=== PATIENT | female | born 1960 | race Caucasian/White ===

== ENCOUNTER → 2016-10-12 | Outpatient (CLI) | payer OTHER | LOC: RAD 08:35 | PROVIDERS: ATTEND Otolaryngology | DX: H71.01 Cholesteatoma of attic, right ear (principal) | CPT/HCPCS: 70480 ==

== ENCOUNTER 2016-12-13 06:27 | Day surgery (SDC) | payer OTHER ==
[2016-12-13] MEDS ORDERED: LIDOCAINE 1%/EPINEPHRINE INJ 20 ML VIAL ONE (07:13)
[2016-12-13] MEDS ORDERED: EPINEPHRINE INJ 30 MG/30 ML VIAL ONE (07:13)
[2016-12-13] MEDS ORDERED: CIPROFLOXACIN HCL/DEXAMETH OTIC DROP 7.5 ML ONE (07:13)
[2016-12-13] MEDS ORDERED: MIDAZOLAM 2 MG/2 ML INJ ONE (07:22)
[2016-12-13] MEDS ORDERED: DEXMEDETOMIDINE INJ 80 MCG/20 ML VIAL IV ONE (07:23)
[2016-12-13] MEDS ORDERED: DEXAMETHASONE SOD PHOS INJ 10 MG/1 ML VIAL ONE (07:23)
[2016-12-13] MEDS ORDERED: FENTANYL CITRATE INJ/PF 250 MCG/5 ML AMPULE ONE (07:23)
[2016-12-13] MEDS ORDERED: PROPOFOL INJ 200 MG/20 ML VIAL IV ONE (07:23)
[2016-12-13] MEDS ORDERED: ONDANSETRON HCL INJ/PF 4 MG/2 ML SDV ONE (07:24)
[2016-12-13] MEDS ORDERED: ACETAMINOPHEN 100 ML IV ONE (07:25)
[2016-12-13] MEDS ORDERED: DIPHENHYDRAMINE HCL 50 MG/ML VIAL ONE (07:28)
[2016-12-13] MEDS ORDERED: EPHEDRINE SULFATE INJ 50 MG/1 ML AMPULE ONE (07:58)
[2016-12-13] MEDS ORDERED: SCOPOLAMINE HYDROBROMIDE 1.5 MG PATCH.TD72 TD ONE (08:30)
[2016-12-13] MEDS ORDERED: GLYCOPYRROLATE INJ 0.4 MG/2 ML VIAL ONE (10:46)
[2016-12-13] MEDS ORDERED: ROCURONIUM BROMIDE INJ 50 MG/5 ML VIAL IV ONE (11:07)
[2016-12-13] MEDS ORDERED: MORPHINE SULFATE 10 MG/ML INJ ONE (11:07)
[2016-12-13] MEDS: FENTANYL CITRATE INJ/PF 100 MCG/2 ML AMPUL ONE ×4 (13:46→13:57)
--- NOTE | 2016-12-13 18:43 | OPERATIVE REPORT E ---
Operative Report NAME: AMARILYS STANLEY : 1960 AGE: 56Y DATE OF SURGERY: 12/13/2016 ROOM: PREOPERATIVE DIAGNOSIS: Attic cholesteatoma right ear POSTOPERATIVE DIAGNOSIS: As preop together with missing incus. OPERATION: Right modified radical tympanomastoidectomy with excision of cholesteatoma with Facial Nerve Monitoring (1 hour) SURGEON: DAMIÁN CROSS M.D. DOLLY DRIVER: None. ANESTHESIA: General, Dr. Cynthia Whitaker and Evgeny Ragland CRNA PREOPERATIVE NOTE: This is a 56-year-old lady, originally from [facility], who underwent a right simple mastoidectomy there in 1977. According to her older sister, she had ear infections when she was a young child, but apparently did not receive myringotomies and tubes. Past history for allergies, and she has been on shots for years. She has had hearing loss on the right side, basically to the point that she only uses her left ear. The patient was seen by the emergency department at the [facility] [place] on 10/01/2016, initially because of bloody right-sided otorrhea. She was followed up there on 10/03/2016, and there was concern about a possible perforated tympanic membrane, and she was put on Ofloxacin drops. She was having "large chunks" of material coming out of her ear, and she was then seen at [facility] on 10/08/2016, at which point it was evident that she had an attic cholesteatoma. A CT scan was performed at [facility] some days later, which was confirmatory of a mass apparently arising in the attic. An audiometric assessment was also obtained which showed a conductive hearing loss on the right hand side. 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 The patient now comes for definitive tympanomastoid surgery. The patient was seen and identified in the preop holding area. A brief history and physical was completed, as the documentation from [facility] had not been faxed over. The right ear was marked for laterality. The CT scan was reviewed on the computer. The patient was then taken back to the operating room, placed in supine position, general anesthesia was induced and an oral endotracheal tube was placed by Gabrielle. The patient's right ear area was shaved. The Neurosign monitor electrodes were placed. A suitable skin incision was marked out with a skin marking pen. The patient was then appropriately positioned, prepped and draped for right otologic surgery. A short time out was then taken and all issues relating to the patient's identify, her positioning on the table, the procedures to be performed, and the risks attendant thereto, were all discussed and there were no matters arising. Initially, the area of the postauricular skin crease was infiltrated with 1% Lidocaine, 1:100,000 epinephrine using a 25 gauge needle, and the same material was utilized to infiltrate the right external canal. The Zeiss operating microscope was brought into the field and the right external canal was examined. The attic cholesteatoma was visualized. The pars tensa appeared unremarkable. Radial incisions were then made with a sickle knife at 6 o'clock and 12 o'clock and joined with a canal incision that left a generous posterosuperior corner. That corner was confirmed using Bellucci scissors. The tympanomeatal flap was then taken down to the annulus but not through it. A granuloma was noted in the open attic perforation and this was biopsied and sent for histological analysis. Next, the skin crease incision was made posterior to the prior scar. This was created with a #15-bladed knife and then deepened with needlepoint electrocautery. Dissection was done with curved Iris scissors and then a Weitlaner was inserted. The dissection was taken forward through the scar tissue until the defect in the mastoid cortical bone was identified. Dissection was carried anterior to that, until the bony external canal could be palpated. The Weitlaner was moved to accommodate this. Next, a needlepoint cautery incision was made following the inferior border of the right temporalis muscle from about the level of the external canal posteriorly to the posterior wound edge. A T-incision was then dropped as a perpendicular along the lateral aspect of the right mastoid process. Periosteal elevation was then done across the cortical defect in the right mastoid process and onto the posterior bony ear canal. The posterior canal wall flap was then elevated. This was then retracted back through the external canal using 2-0 Chromic catgut suture. The Rahman self retaining retractor was then inserted. The mastoid process appeared to have a number of scar bands across it. This seemed to compartmentalize this cavity but there was no pus or fluid and no cholesteatoma sac could be seen immediately. The dissection of the tympanomeatal flap was now done until the annulus could be elevated and the middle ear entered. The annulus was elevated superiorly. The chorda tympani nerve was identified and the attic retraction/cholesteatoma sac appeared to abut the superior aspect of the nerve. That nerve was carefully traced to the neck of the malleus, teasing it off of the inferior lip of the cholesteatoma sac as the dissection progressed. All of this tissue was extremely friable and concern was experienced regarding the potential for tearing the sac. It was felt reasonable to see if the sac could be identified inside the mastoid in order to determine its extent. Accordingly, drilling was begun with the [employer] drill system using a large cutting bur. That was utilized to drill off the overhangs from the previous dissection. The posterior bony canal wall was fairly thick, posteriorly, and therefore drilling down the posterior aspect of this could be done with ease. This was taken down until the lateral semicircular canal could be visualized. This structure was easily found. Careful palpation was then done with a whirlybird, but no incus could be palpated. A return was therefore made to the external canal and the dissection was continued posteriorly and then superiorly pushing the cholesteatoma sac anteriorly using a house knife. This further suggested that there was no incus, as the sac appeared to collapse, with the posterior wall being pushed forward onto its anterior wall. With further dissection, the posterior limits of the sac could not be established with any certainty. Drilling was again commenced inside the mastoid and, as the dissection proceeded forward and superiorly, it became evident that the sac was indeed very large, extending medial to the head of the malleus, probably in the direction of the eustachian tube orifice. At this point, all hopeof continuing with a canal wall intact procedure was abandoned, and it was decided to take the posterior canal wall down. This was then done expeditiously with large cutting bur and copious irrigation. The bridge was broken with a stapes curet. The ridge was then lowered, initially with cutting bur. Some use of the curet was made. The ridge was then further lowered with large lamberto bur and copious irrigation. There was a prominent tract of thickened sick-looking mucoid material in the suprapyramidal tract of cells. These were cleaned out using a Shandra knife. It was then possible to take the posterior facial ridge down to a suitable low height. There was much aeration of the mastoid process, inferiorly. This was drilled out with large cutting bur and then the tip was taken off with bone rongeurs. The sigmoid sinus was already in view and this was further dissected, both inferiorly down into the tip, and then superiorly, as it became evident that the mastoid roof was quite low. Careful dissection of this revealed that there was really quite a lot of bone here that had to be removed before the dura of the middle cranial fossa was approached. There did not appear to be an obvious defect in the tegmen mastoidii. The aerated cells, medially, were curetted first of all, and then use was made, first of light drilling with a small cutting bur, 2 mm, and then a lamberto bur to eburnate all these cells. Drilling then had to be done anteriorly and superiorly to gain full visualization of the sac's anterior limit. It then became possible to see all of the dimensions of the sac and indeed the end of the sac was close to the opening of the eustachian tube. The sac itself was carefully peeled across the horizontal portion of the facial nerve and was teased out from underneath the mastoid head. It was then possible to use the malleus head nipper to remove the head of the malleus (which was possibly contaminated, so it was placed in sterile water, rather than saline, for the remainder of the case). The sac was then teased back towards the middle ear and then it was excised and sent, piecemeal, for histological analysis. Next, an incision was made along the handle of the malleus and the periosteum was elevated forwards in order to allow for the temporalis fascia graft to tucked underneath the tympanic membrane but lateral to the handle of the malleus. That dissection was taken superiorly over the short process up to the truncated neck. As no incus was found, it was then possible to dissect down towards the oval window and a mobile stapes superstructure was discovered. This was not instrumented. The rest of the middle ear appeared unremarkable. The floor of the external canal was lowered with a lamberto bur to be at the right height with the ridge. Further lowering of the ridge was done, keeping a careful watch for the Neurosign alarm. Next, a large piece of "fools' fascia" was harvested, cleansed, and crushed in the fascia press. No bleeding ensued from that. After that, a large piece of temporalis fascia was carefully harvested and this likewise was cleansed and then crushed in the fascia press. Next, a meatoplasty was created by resecting a small portion of conchal cartilage and extending the radial incisions such that the posterior wall could be brought yet further back. Bleeding was surprisingly minimal. The conchal cartilage was cleansed and then placed in the recess superior to the lateral semicircular canal. The middle ear was now filled with chips of Gelfoam soaked in Ciprodex otic suspension. The temporalis fascia graft was inserted with a tongue passing lateral to the handle of the malleus but medial to the tympanic membrane remnant. Some was then laid up onto the inferior bony external canal. It was then laid across the stapes superstructure up onto the facial ridge and the region of the lateral semicircular canal and then down into the mastoid bowl. Now the fools' fascia was placed to line the roof of the mastoid bowl and cover the conchal cartilage. This extended all the way down towards the mastoid tip. Large amounts of Gelfoam sponge were then placed lateral to all of this. The meatoplasty had been made large enough to admit the index finger of the surgeon's left hand. The posterior canal flap was now trimmed of excess length and sutured back, using a 2-0 Chromic catgut suture placed through the conchal cartilage, attaching it to the mastoid periosteum, posteriorly. Two such sutures were placed. The wound was then closed with interrupted 2-0 Chromic catgut sutures utilizing buried knots. Skin was closed with jaki. A finger from a surgical glove was then removed and a piece of Gelfoam was placed in this. This glove finger was then greased with bacitracin ointment and placed in the external auditory meatus. The wound was then cleansed, dried, coated with bacitracin ointment, and then bacitracin-soaked cotton was teased out and placed in the postauricular skin crease and some was placed in the conchal bowl. This was followed by a standard Julia dressing and the procedure was terminated. The Neurosign electrodes were removed. The anesthesia was reversed. The patient was extubated, light, and transferred to PACU in good condition having tolerated procedure well. Because the procedure extended longer than had originally been anticipated, a Morris catheter was placed by the RN at about 10:30 hours and this will be kept until she is fully recovered in PACU. Estimated blood loss was under 20 mL. Replacement was with lactated ringers 1700 mL. There were no complications. No untoward events. DICTATING PHYSICIAN: DAMIÁN CROSS M.D. [id number] PHY#: [id number] ID: [id number] JOB#: [id number] ACCT: [id number] cc:DAMIÁN CROSS M.D. > MTDD
== END 2016-12-13 15:38 | disposition home or self-care (01) ==
LOC: SC 06:27
PROVIDERS: ATTEND Otolaryngology
PROC: 09B Ear, Nose, Sinus, Excision (ICD-10-PCS; 2016-12-13)
PROC: 0NB50ZZ Excision of Right Temporal Bone, Open Approach (ICD-10-PCS; principal; 2016-12-13 07:30)
DX: H71.01 Cholesteatoma of attic, right ear (principal); E11.9 Type 2 diabetes mellitus without complications; I10 Essential (primary) hypertension; Z79.84 Long term (current) use of oral hypoglycemic drugs; Z79.899 Other long term (current) drug therapy; Z88.0 Allergy status to penicillin
CPT/HCPCS: 82962; 88305 ×2; 69645; 69799; J2250; J3490 ×5; J1200; J0171; J3010 ×2; J2270; J2405; J2704; J1100; J0131; 120